=== PATIENT | female | born 1940 | race Caucasian/White ===

== ENCOUNTER → 2017-03-30 | Outpatient (CLI) | payer MEDICARE, OTHER ==
--- NOTE | 2017-03-30 19:31 | XCELERA REPORT ---
[address] [address] Transthoracic Echocardiogram Report Name: KAYE CARMONA Age: 77 yrs Gender: Female : 1940 Patient Status: Outpatient Patient Location: Study Date: 03/30/2017 10:23 AM Height: 61 in Weight: 116 lb BSA: 1.5 m2 Procedure: A complete two-dimensional transthoracic echocardiogram was performed (2D, M-mode, spectral and color flow Doppler). The study was technically difficult with many images being suboptimal in quality. Reason For Study: TURNER ROBERTS Ordering Physician: MANUEL CLAYTON Performed By: Ashli Flanagan Interpretation Summary The study was technically difficult with many images being suboptimal in quality. The left ventricular ejection fraction is normal. Doppler measurements suggest pseudonormalized left ventricular relaxation, which is associated with grade II/IV or mild to moderate diastolic dysfunction There is borderline concentric left ventricular hypertrophy. The left ventricle is grossly normal size. Wall motion cannot be accurately commented on, but no definite regional wall motion abnormalities noted. The right ventricular systolic function is normal. Borderline right ventricular enlargement. The left atrial size is normal. The right atrium is normal in size There is no mitral valve stenosis. There is a trace amount of mitral regurgitation There is no aortic valve stenosis There is a mild amount of aortic regurgitation There is a trace to mild amount of tricuspid regurgitation There is mild to moderate pulmonary hypertension by echo Right ventricular systolic pressure is estimated to be elevated at 40- 50mmHg. Minimal pericardial effusion. MMode/2D Measurements \T\ Calculations RVDd: 2.3 cm LVIDd: 4.5 cm FS: 35.1 % Ao root diam: IVSd: 0.80 cm LVIDs: 2.9 cm EDV(Teich): 3.0 cm LVPWd: 0.78 cm 92.2 ml Ao root area: ESV(Teich): 32.7 ml 7.3 cm2 EF(Teich): 64.6 % LA dimension: 2.5 cm LVOT diam: LVLd ap4: 7.0 cm SV(MOD-sp4): 2.0 cm EDV(MOD-sp4): 30.0 ml LVOT area: 45.0 ml LVLs ap4: 5.7 cm 3.0 cm2 ESV(MOD-sp4): 15.0 ml EF(MOD-sp4): 66.7 % Doppler Measurements \T\ Calculations MV E max andressa: MV P1/2t max andressa: Ao V2 max: AI max andressa: 84.9 cm/sec 83.9 cm/sec 99.0 cm/sec 326.9 cm/sec MV A max andressa: MV P1/2t: 52.5 msec Ao max PG: AI max P.9 cm/sec MVA(P1/2t): 4.2 cm2 3.9 mmHg 42.7 mmHg MV E/A: 1.0 MV dec slope: ROSANA(V,D): 2.3 cm2 AI dec slope: 468.2 cm/sec2 139.6 cm/sec2 AI P1/2t: 685.8 msec LV V1 max PG: PA V2 max: TR max andressa: 2.4 mmHg 77.5 cm/sec 312.2 cm/sec LV V1 max: PA max P.4 mmHg TR max P.5 cm/sec 39.0 mmHg Left Ventricle The left ventricle is grossly normal size. There is borderline concentric left ventricular hypertrophy. The left ventricular ejection fraction is normal. Doppler measurements suggest pseudonormalized left ventricular relaxation, which is associated with grade II/IV or mild to moderate diastolic dysfunction. Wall motion cannot be accurately commented on, but no definite regional wall motion abnormalities noted. Right Ventricle Borderline right ventricular enlargement. There is normal right ventricular wall thickness. The right ventricular systolic function is normal. Atria The right atrium is normal in size. The left atrial size is normal. Interarterial septum not well visualized and not well dopplered. Cannot comment on ASD/PFO presence. Mitral Valve The mitral valve is grossly normal. There is no mitral valve stenosis. There is a trace amount of mitral regurgitation. Aortic Valve The aortic valve is sclerotic, but shows no functional abnormality. There is no aortic valve stenosis. There is a mild amount of aortic regurgitation. Tricuspid Valve The tricuspid valve is not well visualized, but is grossly normal. There is no tricuspid stenosis. There is a trace to mild amount of tricuspid regurgitation. There is mild to moderate pulmonary hypertension by echo. Right ventricular systolic pressure is estimated to be elevated at 40- 50mmHg. Pulmonic Valve The pulmonic valve is not well visualized. Great Vessels The aortic root is not well visualized. The inferior vena cava was not well visualized. Effusions Minimal pericardial effusion. : MANUEL CLAYTON > Kylie Jaramillo
== END ==
LOC: SP 10:09
PROVIDERS: ATTEND Internal Medicine Critical Care Medicine
DX: I27.2 Other secondary pulmonary hypertension (principal); R06.02 Shortness of breath; R09.02 Hypoxemia; J45.40 Moderate persistent asthma, uncomplicated; J44.9 Chronic obstructive pulmonary disease, unspecified; K21.9 Gastro-esophageal reflux disease without esophagitis
CPT/HCPCS: 93306

== ENCOUNTER → 2017-05-12 | Outpatient (CLI) | payer MEDICARE, OTHER ==
--- NOTE | 2017-05-12 09:34 | ST Modified Barium Swallow ---
Recommendation - Recommendations Recommendations: Recommend follow up with GI due to possible esophageal concerns. Patient to follow up with outpatient speech treatment, continue with mechanical soft diet. Strategies to include alternating bites and sips, small sips of liquid, and hard swallows. Medical Diagnoses - Medical Diagnoses Medical Diagnosis Description & ICD-10 Code(s): R13.10 dysphagia Other Medical Diagnoses/Co-Morbidities: osteoporosis, arthritis, high blood pressure, high cholesterol, reflux ST Modified Barium Swallow - General Date: 05/12/17 Referring Physician: Dr. Haider Arias Risks/Precautions: Aspiration - History History obtained from: Patient, Other - EMR -: Medical - Patient admitted to [facility] on 05/01/17. Patient aspirated pea on 04/29/17 requiring surgery to remove from airway. Patient reports coughing for two days trying to get up before going to hospital. Records received from [facility] indicate joint procedure by open hearth worker and pulmonology - EGD and bronchoscopy. On EGD, small nodule on GE junction was appreciated and biopsies takes of nodule and middle/distal esophagus. On bronchoscopy, airway noted to be very friable with minor bleeding. Aspirated pea visualized and removed from bronchus. Chest CT also performed and findings include: "focal ovoid aspirated material within the lumen of the proximal lower lobe bronchus" and "ground glass nodule in right middle lobe" as well as "severe panlobular emphesyema". Patient also at [facility] Emergency Department 05/09/17. Patient had calcium pill ( 500 mg) that became stuck - patient reports at level of larynx. Per patient, x- ray of throat performed & unable to find pill, but patient once patient allowed to drink water reports sticking sensation went away. Patient eating soft diet until Modified Barium Swallow Study. Patient denies any signs and/or symptoms aspiration except two recent choking episodes and some coughing while eating. Medications: Spiriva, Zocor, Atenolol, Claritin, Albuterol, Centrum Silver, Aspirin, Advair, Calcium Carbonate/Vitamin D, Prilosec, Fiber Well, Hilario Red, Pataday, Refresh Allergies: Penicillin, Tetracycline, Clindamycin. Patient also reports fruit makes her mouth "break out". - Functional Status Prior Functional Status: INDEPENDENT: feeding - independent Current Functional Limitations: feeding - modified diet - Subjective Patient/caregiver goal(s): safe swallow Cognitive-Linguistic Function: WNL Speech Intelligibility: WNL Current Nutritional Means: PO Current PO diet: Mechanical- ground Current symptoms: Aspiration, c/o Globus sensation Pain: Patient reports, 0/5 - Objective Assessment: Upright, Left Lateral - Food Trials Used Food trials used: Thin liquids, Pureed, Regular - unable to trial soft solids due to adverse reaction to fruit (peaches) The patient: Was Able to Self Feed - Oral-Motor Skills Dentition: Dentures-Upper, Dentures-Lower Laryngeal Function: Throat Clear, Volitional Swallow - Assessment Oral prep: Normal Labial closure: Adequate Leakage: None Mastication: Adequate Lingual Movement: Normal - Pharyngeal Stage Initiation of Pharyngeal Stage Reflex: Normal Decreased laryngeal elevation: Yes - mild Reduced pressure generation: Yes reduced tongue-based retraction: Yes Pre-swallow pooling in valleculae: Moderate Pre-Swallow pooling in pyriforms: None Reduced Thyro-Hyoid approximation: Yes - mild Reduced epiglottic excursion: No Multiple Swallows with: Cleared w/ Liquid Assist Post-swallow residulas vallecular: Significant - seen on cracker/regular texture trial. Mild residue seen on puree trials. Post-Swallow residuals in pyriforms: Mild Post-Swallow Residuals: tongue-base, throughout pharynx - Residue noted from base of tongue extending to valleculae after trial of janessa cracker. - Esophageal Stage Esophageal Stage: Material noted to remain in upper portion of esophagus post swallow. - Fall Risk Assessment Medications/Conditions that increase fall risks include: Antidepressants, sedatives, anti-arrhythmic, diuretic, benzodiazipenes, neuroleptics. BP regulation problems, cardiac problems, balance or gait deficits, neurological problems. Is patient considered at risk for falls: age appropriate Fall Risk Actions Taken: No action needed - Behavioral Observations During evaluation process patient: was pleasant, was cooperative, able to answer questions, provided medical history Mental Status: Alert & Oriented X3 - Treatment / Educational Needs: Treatment/Education Needs: Treatment consisted of patient education on the role of the Speech Pathologist. Patient's plan of care and golas were communicated as well as scheduling and attendance policies. Recommendations for initial home program were shared. Patient demonstrated understanding and verbalized agreement. - Impression/Summary Consistency: Thin Tracheal Aspiration: yes, silent, during swallow - Aspiration seen on first trial of thin liquid cup sip. Patient took larger sip requiring 2-3 swallows to clear, aspiration seen on first swallow, no patient reaction seen. With cue to reduce sip size, no further aspiration or penetration was seen. Compesatory strategies: Patient advised to reduce sip size for all liquids to avoid aspiration. Also advised to alternate bites and sips at meals, and use hard swallows to help clear residue. Patient presents with: Oral-Pharyngeal dysph., Mild-Moderate Risk of Aspiration: Moderate Risk of nutritional compromise: Mild Evaluation and Findings: Patient presents with moderately impaired pharyngeal swallow, and mildly impaired oral swallow skills. These are characterized by significant residue on posterior tongue after swallow of regular texture, and significant residue into valleculae on regular textures. Small amount of silent aspiration seen on thin liquid trial x1, able to eliminate with smaller sip sizes. Patient advised to follow up with outpatient therapy for dysphagia treatment. - Recommendations Solid diet recommendations: Mechanical Soft Liquid Diet Modification: Thin Strict aspiration precautions: Yes Pt/Family education and followup with MD: Yes Dysphagia therapy with T[employer] TR[employer]MING SUPERVISOR: f/u with current thera. Recommended techniques: Fully Upright During Meal, Med Crushed in Applesauce, Small Bites and Sips, Alternate Bites/Sips Information, Precautions and Recommendations: Patient (Written), Patient (Verbal ) - Time Total Time: 35 - Plan of Care Patient to follow-up with referring physician: Yes POC Procedures/Codes: pharyngeal exercises, oral motor exercises, pt/family education Strategies to optimize patient understanding include:: ongoing assessment of educational needs, implementation of educational strategies, and re-education. - - -: Thank you for the opportunity to work with this patient and his/her family. Should you have any questions about this patient's plan or progress, I can be reached at [phone]. Charge G Code? - - -: No
== END ==
LOC: RAD 07:11
PROVIDERS: ATTEND Family Medicine
DX: R13.10 Dysphagia, unspecified (principal)
CPT/HCPCS: 74230; 92611; G8996; G8997